=== PATIENT | male | born 1960 | race Caucasian/White ===

== ENCOUNTER 2018-01-11 14:02 | Emergency (ER) | payer BC, OTHER ==
[2018-01-11] MEDS ORDERED: Benztropine 1 MG Tab PO STA (14:53)
[2018-01-11] MEDS ORDERED: Sodium Chloride 0.9% 1,000 ML IV ONE (14:53)
[2018-01-11] MEDS ORDERED: Ondansetron 4 MG/2 ML SDV IVPUSH ONE (14:53)
[2018-01-11] MEDS ORDERED: Haloperidol Lactate 5 MG/ML SDV IM ONE (14:53)
--- NOTE | 2018-01-11 14:58 | EDM.PDOC ---
ED HPI GENERAL MEDICAL PROBLEM - General Chief Complaint: Neurological Problem Stated Complaint: HEADACHE/BLURRED VISION ON R SIDE Time Seen by Provider: 01/11/18 14:32 Source of Information: Reports: Patient History Limitations: Reports: No Limitations - History of Present Illness INITIAL COMMENTS - FREE TEXT/NARRATIVE: The patient states that he developed sudden onset right-sided head pain yesterday morning, which has persisted. The pain involves his right eye and extends across the right side of his head, although excludes his right ear. It is a pressure sensation. He has had some blurry vision to his right eye since this morning. He has slight photophobia, but no phonophobia. He reports having slight nausea today. He denies having sinus symptoms. No recent fever. No tingling, numbness, or weakness. No prior similar symptoms. The patient does not have a PCP. Right Head Pain Score (Numeric/FACES): 5 - Related Data Allergies Allergy/AdvReac Type Severity Reaction Status Date / Time No Known Allergies Allergy Verified 01/11/18 14:15 Home Meds: Home Meds Rizatriptan [Maxalt RISK LEAD] 1 tab PO Q2H PRN #3 tab.dis 01/11/18 [Rx] Past Medical History - Past Surgical History GI Surgical History: Reports: Cholecystectomy, Hernia, Inguinal Musculoskeletal Surgical History: Reports: Arthroscopic Knee (right) Social & Family History - Tobacco Use Smoking Status *Q: Current Every Day Smoker Years of Tobacco use: 41 Packs/Tins Daily: 1 - Caffeine Use Caffeine Use: Reports: Coffee, Soda - Alcohol Use Alcohol Use History: Yes Alcohol Use Frequency: Rarely - Recreational Drug Use Recreational Drug Use: No - Living Situation & Occupation Living situation: Reports: , with Spouse 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 - Physical Exam Exam: See Below Exam Limited By: No Limitations General Appearance: Alert, WD/WN, No Apparent Distress Eye Exam: Bilateral Eye: EOMI, Normal Inspection, PERRL Ears: Normal External Exam, Normal Canal, Hearing Grossly Normal, Normal TMs Nose: Normal Inspection, Normal Mucosa, No Blood Throat/Mouth: Normal Inspection, Normal Lips, Normal Teeth, Normal Gums, Normal Oropharynx, Normal Voice, No Airway Compromise Head Exam: Atraumatic, Normocephalic Neck: Normal Inspection, Supple, Non-Tender, Full Range of Motion. No: Lymphadenopathy (L), Lymphadenopathy (R) Respiratory/Chest: No Respiratory Distress, Lungs Clear, Normal Breath Sounds, No Accessory Muscle Use Cardiovascular: Normal Peripheral Pulses, Regular Rate, Rhythm, No Gallop, No JVD, No Murmur, No Rub GI/Abdominal: Normal Bowel Sounds, Soft, Non-Tender, No Organomegaly, No Distention, No Abnormal Bruit, No Mass (Male) Exam: Deferred Rectal (Males) Exam: Deferred Neuro Exam (Abbreviated): Alert, Oriented, CN II-XII Intact, Normal Cognition, No Motor/Sensory Deficits Back Exam: Normal Inspection, Full Range of Motion, NT Extremities: Normal Inspection, Normal Range of Motion, No Pedal Edema, Normal Capillary Refill Psychiatric: Normal Affect Skin Exam: Warm, Dry, Intact, Normal Color, No Rash Course - Vital Signs Last Recorded V/S: Last Vital Signs Temp 36.9 C 01/11/18 14:08 Pulse 71 01/11/18 14:08 Resp 13 01/11/18 14:08 BP 152/95 H 01/11/18 14:08 Pulse Ox 95 01/11/18 14:08 - Orders/Labs/Meds Labs: Laboratory Tests 01/11/18 01/11/18 01/11/18 Range/Units 14:20 14:20 14:20 WBC 9.21 H (4.23-9.07) K/mm3 RBC 5.03 (4.63-6.08) M/mm3 Hgb 15.0 (13.7-17.5) gm/L Hct 44.3 (40.1-51.0) % MCV 88.1 (79.0-92.2) fl MCH 29.8 (25.7-32.2) pg MCHC 33.9 (32.2-35.5) g/dl RDW Std Deviation 42.9 (35.1-43.9) fL Plt Count 277 (163-337) K/mm3 MPV 9.7 (9.4-12.3) fl Neutrophils % (Manual) 55 (40-60) % Band Neutrophils % 0 (0-10) % Lymphocytes % (Manual) 34 (20-40) % Atypical Lymphs % 0 % Monocytes % (Manual) 7 (2-10) % Eosinophils % (Manual) 2 (0.8-7.0) % Basophils % (Manual) 2 H (0.2-1.2) Platelet Estimate Adequate Plt Morphology Comment Normal RBC Morph Comment Normal ESR 17 H (0-15) mm/hr Sodium 139 (136-145) mEq/L Potassium 4.1 (3.5-5.1) mEq/L Chloride 103 (98-107) mEq/L Carbon Dioxide 24 (21-32) mEq/L Anion Gap 16.1 H (5-15) BUN 14 (7-18) mg/dL Creatinine 0.8 (0.7-1.3) mg/dL Est Cr Clr Drug Dosing 110.47 mL/min Estimated GFR (MDRD) > 60 (>60) mL/min BUN/Creatinine Ratio 17.5 (14-18) Glucose 104 (74-106) mg/dL Calcium 8.9 (8.5-10.1) mg/dL Total Bilirubin 0.2 (0.2-1.0) mg/dL AST 29 (15-37) U/L ALT 49 (16-63) U/L Alkaline Phosphatase 74 (46-116) U/L C-Reactive Protein < 0.2 (<1.0) mg/dL Total Protein 7.5 (6.4-8.2) g/dl Albumin 3.8 (3.4-5.0) g/dl Globulin 3.7 gm/dL Albumin/Globulin Ratio 1.0 (1-2) Meds: Medications Discontinued Medications Generic Name Dose Route Start Last Admin Trade Name Freq PRN Reason Stop Dose Admin Benztropine Mesylate 1 mg 01/11/18 14:53 01/11/18 15:06 Cogentin PO 01/11/18 14:54 1 mg ONETIME STA Administration Haloperidol Lactate 5 mg 01/11/18 14:53 01/11/18 15:06 Haldol IM 01/11/18 14:54 5 mg ONETIME ONE Administration Sodium Chloride 1,000 mls @ 999 mls/hr 01/11/18 14:53 01/11/18 15:05 Normal Saline IV 01/11/18 15:53 999 mls/hr ONETIME ONE Administration Ondansetron HCl 4 mg 01/11/18 14:53 01/11/18 15:06 Zofran IVPUSH 01/11/18 14:54 4 mg ONETIME ONE Administration - Re-Assessments/Exams Free Text/Narrative Re-Assessment/Exam: 01/11/18 14:55 The etiology of the patient's headache is unclear. The sudden onset of the unilateral head pain is initially concerning for trigeminal neuralgia, however, the patient is reporting continuous right-sided head pressure, not intermittent , stabbing, lancinating pain. Giant cell arteritis is a possibility - I have ordered bloodwork that includes a CRP and ESR. A tension headache is very possible, however, before I treat the patient for a tension headache, I would like to treat for a migraine with Haldol. If that resolves the headache, then the diagnosis is made, and the patient can be discharged home with a prescription for Maxalt. If it does not resolve the headache, then I will treat for a tension headache. Although his neurologic exam is normal, as the patient has not previously undergone an imaging study of his head, I have ordered a CT of the head without contrast. 01/11/18 15:44 CT of the head without contrast is read by Dr. Redmond as: 1. Nothing acute is identified on noncontrast head CT study. 01/11/18 15:50 The patient reports substantial improvement in his headache following IM Haldol , down to about "2" from a "7". This strongly suggests that the patient's headache was migrainous in etiology. I will discharge him home with an e- prescription for Maxalt, plus a referral to Dr. Mauricio. The patient's ESR is not yet back, however, his CRP is undetectably low, which effectively rules out temporal arteritis. Departure - Departure Time of Disposition: 15:52 Disposition: Home, Self-Care 01 Condition: Good Clinical Impression: Migraine headache without aura - Discharge Information Prescriptions: Rizatriptan [Maxalt RISK LEAD] 1 tab PO Q2H PRN #3 tab.dis PRN Reason: Headache/Pain Instructions: Migraine Headache, [id number] Referrals: PCP,None [Primary Care Provider] - Forms: ED Department Discharge Additional Instructions: You were seen in the emergency room for a right-sided headache with right eye blurry vision. Workup in the ER included blood work and a CT scan of your head. Your workup was normal. You were treated with an antimigraine medicine, and her headache significantly improved. This strongly suggests that your headache was a migraine. Get plenty of rest tonight in a dark, quiet place, and stay well hydrated. A prescription for the anti-migraine medicine Maxalt (rizatriptan) has been sent to the [facility] pharmacy, [address], across the street from [facility]. Dissolve 1 tablet in your mouth at the earliest onset of migraine symptoms. You may repeat after 2 hours, to a maximum of 3 tablets within a 24-hour period. If this medicine works few, you may follow-up with Dr. Mauricio in the clinic for additional prescriptions. If any other problems, please do not hesitate to return to the ER.
--- NOTE | 2018-01-11 15:26 | CT ---
Head CT Technique: Multiple axial sections through the brain were obtained. Intravenous contrast was not utilized. Comparison: No previous intracranial imaging. Findings: Ventricles along with basal cisterns and sulci over the convexities are within normal limits for the patient's age. No abnormal parenchymal densities are seen. No evidence of intracranial hemorrhage. No midline shift or mass effect is seen. Bone window settings were reviewed which shows the visualized sinuses to appear clear. No acute calvarial abnormality is seen. Impression: 1. Nothing acute is identified on noncontrast head CT study. Diagnostic code #1
== END 2018-01-11 16:07 | disposition home or self-care (01) ==
LOC: JD.ED 14:02
DX: G43.009 Migraine without aura, not intractable, without status migrainosus (principal); F17.210 Nicotine dependence, cigarettes, uncomplicated
CPT/HCPCS: 36415; 70450; 80053; 85025; 85652; 86140; 96361; 96372; 96374; 99284; A9270; J1630; J2405; J7040